=== PATIENT | male | born 1995 | race Hispanic/Latino ===

== ENCOUNTER 2019-05-26 17:47 | Observation (INO) | payer BC ==
[2019-05-26 18:27] LABS: #Basophils 0.1 thou/uL (0.0-0.2); #Eosinphils 0.2 thou/uL (0.0-0.7); #Lymphocytes 2.6 thou/uL (1.20-3.40); #Monocytes 0.5 thou/uL (0.11-0.59); #Neutrophils 3.9 thou/uL (1.40-6.50); %Basophils 1.2 % (0.0-1.0); %Lymphocytes 35.4 % (21.0-51.0); %Monocytes 6.7 % (0.0-10.0); %Neutrophils 53.7 % (42.0-75.0); Hemoglobin 15.7 g/dL (14.0-18.0); Mean Corpuscular HGB CONC 34.2 g/dL (32.0-36.0); Mean Corpuscular Hemoglobin 30.8 pg (27.0-31.0); Platelet Count 280 thou/uL (130-400); RBC Distribution Width 10.8 % (11.5-14.5); White Blood Cell (WBC) Count 7.3 thou/uL (4.8-10.8)
--- NOTE | 2019-05-26 18:38 | RAD ---
PORTABLE CHEST: HISTORY: Chest pain. FINDINGS: Heart size and mediastinum are within normal limits. Lungs are clear of infiltrates. No significant b anthony findings. IMPRESSION: No active intrathoracic disease. POS: [facility]
[2019-05-26 18:41] LABS: ALT (SGPT) 16 U/L (8-55); AST (SGOT) 16 U/L (5-34); Albumin 4.6 g/dL (3.5-5.0); Alkaline Phosphatase 64 U/L (40-110); Anion Gap 13 mmol/L (10-20); BUN (Urea Nitrogen) 20 mg/dL (8.9-20.6); Bilirubin, Total 0.4 mg/dL (0.2-1.2); Calc. Creatinine Clearance 0 mL/min (70-130); Carbon Dioxide 27 mmol/L (22-29); Chloride 102 mmol/L (98-107); Estimated GFR-MDRD Greater than 90; Globulin 2.4 g/dL (2.4-3.5); Glucose 112 mg/dL (70-105); Potassium 3.9 mmol/L (3.5-5.1); Sodium 138 mmol/L (136-145)
--- NOTE | 2019-05-26 19:53 | PDOC.FPRHP ---
- History of Present Illness Chief Complaint: heart palpitations History of Present Illness: 23 yo male presents with heart palpitations that started while at dinner at [facility]. He had just sat down to eat with friends, drank a glass of water and his heart started racing. He endorses two episodes in the past year of chest discomfort. He said today he felt some chest discomfort during the palpitations as well. We went to the bathroom and they continued, so he called EMS. Takes Fish oil, creatinine, multivitamin, glucosamine chondrointin about every other day. Denies excess amounts of caffeine or energy drinks. Otherwise, healthy and feels asymptomatic now. ED Course: He was found to have a HR of 202 and was in SVT. 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 He was given adenosine 6mg x1 via EMS and now HR in the 60s. - Allergies/Adverse Reactions Allergies Allergy/AdvReac Type Severity Reaction Status Date / Time No Known Allergies Allergy Verified 05/26/19 22:23 - History PMHx: asthma, takes singulair PSHx: wisdom teeth removal, tonsillectomy FHx: Mother: some type of arrhythmia, takes beta-manuel 2 of 4 grandparents: open heart surgery Father: a-fib Maternal Grandmother: a-fib, has pacemaker Social: Grad student Denies smoking, drugs, caffeine, stimulants Socially drinks alcohol No flu shot this year. - Review of Systems General: reports: other (sweating during episode of heart palpitations). denies : fever/chills, weight/appetite/sleep changes Eyes: denies: vision changes ENT: reports: nasal congestion, rhinorrhea (has some seasonal allergies) Respiratory: denies: cough, congestion, shortness of breath Cardiovascular: reports: chest pain, palpitation. denies: edema Gastrointestinal: denies: nausea, vomiting, diarrhea, constipation, abdominal pain Genitourinary: denies: dysuria Skin: denies: rashes Musculoskeletal: denies: pain, tenderness, swelling Neurological: denies: numbness, syncope, seizure Psychological: denies: anxiety, depression - Vital signs BP: 125/75, Pulse: 65, Resp: 20, Pain: 0, O2 sat: 99 on Room Air, Time: 2018 19:03 - Physical Exam Constitutional: NAD, awake, alert and oriented, well developed HEENT: normocephalic and atraumatic, conjunctiva clear, no scleral icterus, grossly normal vision, grossly normal hearing, good dention Neck: trachea midline Heart: RRR, normal S1/S2, no murmurs/rubs/gallops, pulses present (radial 2+ b/l , DP 2+ and equal) Lungs: CTAB, no respiratory distress, good air movement Abdomen: no masses/distention Musculoskeletal: normal structure, normal tone, ROM grossly normal Neurological: no focal deficit Skin: no rash/lesions Heme/Lymphatic: no unusual bruising or bleeding, no purpura, no petechia Psychiatric: normal mood and affect, intact recent and remote memory FMR H&P: Results - Labs Result Diagrams: 05/27/19 04:32 05/27/19 04:32 Lab results: WBC 7.3 thou/uL (4.8-10.8) 05/26/19 18:20 Hgb 15.7 g/dL (14.0-18.0) 05/26/19 18:20 Hct 45.9 % (42.0-52.0) 05/26/19 18:20 MCV 90.0 fL (78.0-98.0) 05/26/19 18:20 Plt Count 280 thou/uL (130-400) 05/26/19 18:20 Neutrophils % 53.7 % (42.0-75.0) 05/26/19 18:20 Sodium 138 mmol/L (136-145) 05/26/19 18:20 Potassium 3.9 mmol/L (3.5-5.1) 05/26/19 18:20 Chloride 102 mmol/L (98-107) 05/26/19 18:20 Carbon Dioxide 27 mmol/L (22-29) 05/26/19 18:20 BUN 20 mg/dL (8.9-20.6) 05/26/19 18:20 Creatinine 1.01 mg/dL (0.7-1.3) 05/26/19 18:20 Glucose 112 mg/dL (70-105) H 05/26/19 18:20 Calcium 9.0 mg/dL (7.8-10.44) 05/26/19 18:20 Total Bilirubin 0.4 mg/dL (0.2-1.2) 05/26/19 18:20 AST 16 U/L (5-34) 05/26/19 18:20 ALT 16 U/L (8-55) 05/26/19 18:20 Alkaline Phosphatase 64 U/L (40-110) 05/26/19 18:20 Serum Total Protein 7.0 g/dL (6.0-8.3) 05/26/19 18:20 Albumin 4.6 g/dL (3.5-5.0) 05/26/19 18:20 - EKG Interpretation EKG: NSR, WPW pattern - Radiology Interpretation Chest x-ray Status: image reviewed by me, report reviewed by me Additional comment: no acute process FMR H&P: A/P - Problem List (1) 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 Robb to see in AM - NPO at midnight in case of EP wanting procedure - Regular diet for dinner - TTE ordered for AM - Magnesium, phosphorus, TSH pending Asthma, mild - takes home singulair, hold for now. Code : FULL VTE PPx: SCDs GI PPx: none Fluids: none Bebe Carrera MD PGY1 Disposition/LOS: Admit to telemetry for observation FMR H&P: Upper Level - Pertinent history 23 yo male presents in SVT now s/p adenosine and admitted for new found WPW. - Pertinent findings VSS PE: RRR CTAB No edema a&ox3 EKG: WPW, NSR - Plan Date/Time: 05/26/191952 A/P: #SVT-resolved, s/p adenosine. Will monitor on tele obs overnight. #WPW-new. Cards consulted in the ED. EP to see and evaluate pt in the am. Admit to tele obs overnight. #Asthma-controlled. Singulair daily. Albuterol prn. Addendum - Attending - Attending Attestation Date/Time: 05/27/19 [id number] I personally evaluated the patient and discussed the management with Dr. Duron yesterday evening. I agree with the History, Examination, Assessment and Plan documented above with any addition or exceptions noted below.
[2019-05-26] MEDS ORDERED: Acetaminophen 325 MG TAB PO PRN (20:50)
[2019-05-26] MEDS ORDERED: Ondansetron ODT 4 MG TAB PO PRN (20:50)
[2019-05-26 21:21] LABS: Troponin I 0.037 ng/mL (< 0.028)
[2019-05-26 22:19] VITALS: BMI 24.5
[2019-05-27 00:08] LABS: Phosphorus 3.9 mg/dL (2.3-4.7)
[2019-05-27 00:10] LABS: Magnesium 1.9 mg/dL (1.6-2.6)
[2019-05-27 01:37] LABS: Troponin I Less than 0.010 ng/mL (< 0.028)
[2019-05-27 05:02] LABS: #Basophils 0.1 thou/uL (0.0-0.2); #Eosinphils 0.2 thou/uL (0.0-0.7); #Lymphocytes 2.7 thou/uL (1.20-3.40); #Monocytes 0.5 thou/uL (0.11-0.59); #Neutrophils 3.7 thou/uL (1.40-6.50); %Basophils 1.4 % (0.0-1.0); %Eosinophils 2.3 % (0.0-10.0); %Lymphocytes 37.5 % (21.0-51.0); %Monocytes 7.2 % (0.0-10.0); %Neutrophils 51.6 % (42.0-75.0); Hemoglobin 15.2 g/dL (14.0-18.0); Mean Corpuscular HGB CONC 33.1 g/dL (32.0-36.0); Mean Corpuscular Hemoglobin 29.7 pg (27.0-31.0); Mean Corpuscular Volume 89.7 fL (78.0-98.0); Mean Platelet Volume 7.4 fL (7.4-10.4); Platelet Count 284 thou/uL (130-400); Red Blood Cell (RBC) Count 5.12 mill/uL (4.70-6.10); White Blood Cell (WBC) Count 7.2 thou/uL (4.8-10.8)
[2019-05-27 05:20] LABS: Anion Gap 13 mmol/L (10-20); BUN (Urea Nitrogen) 15 mg/dL (8.9-20.6); Calc. Creatinine Clearance 143 mL/min (70-130); Calcium 9.2 mg/dL (7.8-10.44); Carbon Dioxide 27 mmol/L (22-29); Chloride 103 mmol/L (98-107); Estimated GFR-MDRD Greater than 90; Glucose 93 mg/dL (70-105); Potassium 3.5 mmol/L (3.5-5.1); Sodium 139 mmol/L (136-145)
--- NOTE | 2019-05-27 06:09 | PDOC.FM ---
- Subjective Subjective: Patient doing well this morning. Denies symptoms of palpitations, cp. Discussed plan of care with patient and his mom, to expect specialist consult and imaging this am; both agreeable to plan of care. Per patient he had an echo done this summer that he recalled demonstrated worsening in his asthma, but he could not recall any diagnoses. - Objective Vital Signs & Weight: Vital Signs (12 hours) Temp Pulse Resp BP Pulse Ox 05/27/19 04:33 97.1 F L 64 16 107/55 L 98 05/26/19 22:08 98.5 F 51 L 15 122/66 99 Weight Weight 82.01 kg Result Diagrams: 05/27/19 04:32 05/27/19 04:32 Phys Exam - Physical Examination Constitutional: NAD HEENT: moist MMs, sclera anicteric Neck: supple, full ROM Respiratory: no wheezing, clear to auscultation bilateral Cardiovascular: no significant murmur Regular rate Gastrointestinal: soft, non-tender Musculoskeletal: no edema, pulses present Neurological: normal sensation, moves all 4 limbs Lymphatic: no nodes Psychiatric: normal affect, A&O x 3 Skin: no rash, normal turgor Dx/Plan (1) Palpitations Code(s): R00.2 - PALPITATIONS Status: Acute (2) SVT (supraventricular tachycardia) Code(s): I47.1 - SUPRAVENTRICULAR TACHYCARDIA Status: Acute (3) 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 Robb to see 11 am, appreciate recs - TTE ordered for 114 AM, will follow - Magnesium, phosphorus, TSH wnl #Asthma, mild - takes home singulair, continue Code : FULL VTE PPx: SCDs GI PPx: none Fluids: none Disposition/LOS: Admit to telemetry for observation, cardiology consult and TTE today
[2019-05-27] MEDS ORDERED: FLU VACC QS2019-20(6MOS UP)/PF 60 MCG/0.5 ML SYRINGE IM ONE (09:00)
[2019-05-27] MEDS ORDERED: Montelukast Sodium 10 mg Tablet PO SCH (09:00)
[2019-05-27 12:05] VITALS: BP 120/60; TEMP 98.1
--- NOTE | 2019-05-27 15:09 | PRG ---
DATE OF SERVICE: 05/27/2019 Mr. Bhakta is a 23-year-old man, who was admitted with palpitations and heart racing. His EKG showed WPW. We have consulted the EP Service. They cannot see the patient today, but we will see him tomorrow as an outpatient for consideration of ablation. The patient has been in normal sinus rhythm on telemetry and will be discharged today for followup with EP tomorrow. Job ID: [id number]
--- NOTE | 2019-05-28 04:46 | DIS ---
DATE OF ADMISSION: 05/26/2019 DATE OF DISCHARGE: 05/27/2019 ADMITTING ATTENDING: Mike Chao MD ADMITTING RESIDENT: Bebe Carrera MD DISCHARGE RESIDENT: Althea Arias MD DISCHARGE ATTENDING: MD Shruti CONSULTS: Electrophysiology (Dr. Robb) PROCEDURES: None. IMAGING: TTE: LV systolic function 50-55%, normal study. PRIMARY DIAGNOSES: New onset Vzbox-Gburccazh-Gudkx, SVT, resolved. SECONDARY DIAGNOSES: Intermittent asthma. DISCHARGE MEDICATIONS: 1. Metoprolol tartrate 12.5 mg, p.o. b.i.d. 2. Singulair. DISCONTINUED MEDICATIONS: 1. Acetaminophen. 2. Zofran. HISTORY OF PRESENT ILLNESS/HOSPITAL COURSE: A 23-year-old male presented to the ED with heart palpitations 05/26 while at [facility] [place]. He was found to have a heart rate of 202 and was in SVT. He was diagnosed as a new onset [id number]-Zyjeb. He was given adenosine 6 mg x1 by EMS and his heart rate was in the 60s upon arrival to the ED. He was monitored in the hospital overnight and his telemetry strip remained in normal sinus rhythm, the patient was asymptomatic. Dr. Robb was consulted, he agreed to see the patient the following day as an outpatient consult. The patient had a TTE done before discharge with metoprolol medication prescribed for him to take after discharge. On discharge , the patient was stable and patient and his mother were agreeable to current plan of care. DISPOSITION: Stable. DISCHARGE INSTRUCTIONS: 1. Location: Home. 2. Diet: Heart healthy. 3. Activity: As tolerated. 4. Followup: Follow up with Dr. Robb at scheduled appointment on 05/28. Job ID: [id number] [facility]
== END 2019-05-27 12:47 | disposition home or self-care (01) ==
LOC: ERS 17:47 → 2SW 22:10
PROVIDERS: ADMIT Family Medicine; ATTEND Family Medicine
DX: I45.6 Pre-excitation syndrome (principal); I47.1 Supraventricular tachycardia; J45.20 Mild intermittent asthma, uncomplicated; Z79.899 Other long term (current) drug therapy
CPT/HCPCS: 36415; 71045; 80048; 80053; 83735; 84100; 84443; 84484; 85025; 93005; 93306; G0378